=== PATIENT | female | born 1935 | race Caucasian/White ===

== ENCOUNTER 2020-11-09 14:21 | Emergency (ER) | payer OTHER ==
[~2020-11-09] VITALS: Ht 162.6 cm; Wt 70.8 kg
[2020-11-09] MEDS ORDERED: LOSARTAN-HCTZ1 EAC3 PO (14:29)
[2020-11-09] MEDS ORDERED: EUTHYROX100 MCG PO (14:29)
[2020-11-09] MEDS ORDERED: LIPITOR 20 MG T20 M1 PO (14:29)
[2020-11-09] MEDS ORDERED: CELEXA 10 MG TA10 M1 PO (14:29)
[2020-11-09] MEDS ORDERED: COREG6.25 MG PO (14:30)
[2020-11-09] MEDS ORDERED: IRON325 PO (14:30)
[2020-11-09] MEDS ORDERED: SUPER B MAXI C0.4 MG PO (14:30)
[2020-11-09] MEDS ORDERED: VITAMIN D325 MC3 PO (14:31)
[2020-11-09] MEDS ORDERED: ALLEGRA ALLERG180 MG PO (14:31)
[2020-11-09] MEDS ORDERED: B12 ACTIVE1000 MCG PO (14:31)
[2020-11-09] MEDS ORDERED: PHILLIPS' COLO1 EACH PO (14:31)
[2020-11-09] MEDS ORDERED: FISH OIL 1,0001 EAC9 PO (14:31)
[2020-11-09] MEDS ORDERED: VITAMIN C1000 MG PO (14:32)
[2020-11-09] MEDS ORDERED: CENTRUM SILVER1 EAC6 PO (14:32)
[2020-11-09] MEDS ORDERED: CITRACAL + D E1 EACH PO (14:33)
[2020-11-09] MEDS ORDERED: [UNRECOGNIZED DRUG - OTHER] (14:33)
[2020-11-09] MEDS ORDERED: XARELTO15 MG PO (14:34)
[2020-11-09 14:35] LABS: ABSOLUTE BASOPHILS 0.1 thou/uL (0.0-0.2); ABSOLUTE EOSINOPHILS 0.3 thou/uL (0.0-0.7); ABSOLUTE LYMPHOCYTES 1.4 thou/uL (0.8-5.3); ABSOLUTE NEUTROPHILS 8.1 thou/uL (1.6-8.1); BASOPHILS 1.2 %; EOSINOPHILS 2.5 %; HEMATOCRIT 31.8 % (37.0-47.0); LYMPHOCYTES 13.3 %; MCH 34.2 pg (26.0-34.0); MCHC 34.6 g/dL (28.0-37.0); MCV 98.6 fL (80.0-100.0); MPV 9.2 fl. (7.2-11.1); NUCLEATED RBCS 0 /100WBC; PLATELET COUNT* 240 thou/uL (150-400); RBC 3.22 mil/uL (4.20-5.00); RDW-CV 14.5 % (10.5-14.5); WBC 10.9 thou/uL (4.0-11.0)
[2020-11-09 14:45] LABS: CALCIUM 9.3 mg/dL (8.5-10.1); CREATININE 1.8 mg/dL (0.6-1.3); POTASSIUM 4.6 mmol/L (3.5-5.1)
[2020-11-09 14:49] LABS: ALBUMIN 2.9 g/dL (3.4-5.0); TOTAL BILIRUBIN 0.4 mg/dL (<0.1-1.0); TOTAL PROTEIN 7.2 g/dL (6.4-8.2)
[2020-11-09 14:54] LABS: APTT 26.1 Seconds (25.0-31.3); INR 1.1; PROTIME 11.6 Seconds (9.20-11.50)
[2020-11-09 15:50] VITALS: BP 120/38
--- NOTE | 2020-11-10 10:16 | EKG ---
[place] [address] ELECTROCARDIOGRAM REPORT Name: ANNETTA MENDOZASHAE Claire Room: [facility]#: [id number] Admission: 11/09/20 Attend Phys: Discharge: 11/09/20 Date of : 35 Date of Service: 11/09/20 1433 Report #: [id number] THIS REPORT FOR: //name// [facility] ED Test Date: 2020-11-09 Test Time: 14:33:16 Pat Name: NELLIE MENDOZA Department: Room: Gender: General Merchandise Manager: [facility] : 1935 Requested By: Porfirio Ingram Order Number: [id number] MD: Turner Cobian Measurements Intervals [place] Rate: 69 P: 88 NE: 188 QRS: 73 QRSD: 100 T: 59 QT: 387 QTc: 415 Interpretive Statements Sinus rhythm Abnormal inferior Q waves No previous ECG available for comparison Electronically Signed On 11-10-2020 10:15:37 CDT by Turner Cobian [email or web address] <ELECTRONICALLY SIGNED> By: Turner Cobian MD, [facility] 11/10/20 1015 1433 1433 Turner Cobian MD, FACC /EPI
== END 2020-11-09 15:50 | disposition home or self-care (01) ==
LOC: M.ERS 14:21
PROVIDERS: Family Medicine
DX: R06.02 Shortness of breath (principal); R55 Syncope and collapse; E11.9 Type 2 diabetes mellitus without complications; I10 Essential (primary) hypertension; E78.5 Hyperlipidemia, unspecified; E03.9 Hypothyroidism, unspecified; Z86.718 Personal history of other venous thrombosis and embolism